=== PATIENT | male | born 1990 | race Two or more races ===

== ENCOUNTER 2023-02-06 21:34 | Emergency (ER) | payer MEDICAID, OTHER ==
[~2023-02-06] VITALS: Ht 175.3 cm; Wt 90.7 kg
--- NOTE | 2023-02-06 21:35 | NUR ---
CHRISTOPHER FOR BOOKING. PT HAS FLU LIKE SYMPTOMS. VITALS CHECKED. PLACED ON RM 19
--- NOTE | 2023-02-06 22:00 | NUR ---
COVID SWAB DONE AND SENT TO LAB
[2023-02-06 22:43] VITALS: BP 147/104
--- NOTE | 2023-02-06 23:41 | NUR ---
Patient discharged to home in stable condition. Written and verbal after care instructions given. Patient verbalizes understanding of instruction.
== END 2023-02-06 23:42 ==
LOC: ER 21:42
DX: J06.9 Acute upper respiratory infection, unspecified (principal); Z20.822 Contact with and (suspected) exposure to COVID-19; I10 Essential (primary) hypertension; E11.9 Type 2 diabetes mellitus without complications; Z60.2 Problems related to living alone
CPT/HCPCS: 99283; 87426; C9803

== ENCOUNTER 2024-02-05 21:58 | Emergency (ER) | payer OTHER ==
[~2024-02-05] VITALS: Ht 175.3 cm; Wt 83.9 kg
[2024-02-05] MEDS ORDERED: HYDROCODONE/APAP 5/325MG TABLET ONE ×2 (22:43→22:48)
[2024-02-05] MEDS: HYDROCODONE/APAP 5/325MG TABLET PO ONE (22:44)
[2024-02-05] MEDS ORDERED: IBUP-1957 PO (22:45)
[2024-02-05 22:53] VITALS: BP 121/79; TEMP 98.7; O2SAT 99
== END 2024-02-05 22:54 ==
LOC: ER 22:04
DX: S62.324A Displaced fracture of shaft of fourth metacarpal bone, right hand, initial encounter for closed fracture (principal); I10 Essential (primary) hypertension; E11.9 Type 2 diabetes mellitus without complications; Z79.899 Other long term (current) drug therapy; Z60.2 Problems related to living alone; W22.8XXA Striking against or struck by other objects, initial encounter; Y93.89 Activity, other specified; Y92.89 Other specified places as the place of occurrence of the external cause; Y99.8 Other external cause status
CPT/HCPCS: 73130-TC